=== PATIENT | male | born 1970 | race African-American/Black ===

== ENCOUNTER 2017-09-09 12:43 | Inpatient (IN) | payer OTHER ==
[~2017-09-09] VITALS: Ht 182.9 cm; Wt 130.0 kg
[~2017-09-09 12:43] MED LIST: ALBU8I INH; ASPI325T PO; COZA50TA PO; GABA600T OR; GLUCTAB OR; LANTUSP SQ; NOVOLOGP2 SQ; OSEL75 PO; PRIL40CA PO; PROM6.257 PO; ROSU40 PO
[2017-09-09 12:45] VITALS: BP 150/86; PULSE 98; RESP 20; TEMP 98.4; O2SAT 97
--- NOTE | 2017-09-09 13:12 | PD ---
HPI Chief Complaint: Injury Time Seen by Provider: 12:59 Travel History International Travel<30 days: No Contact w/Intl Traveler<30days: No Traveled to known affect area: No History of Present Illness HPI Patient is a 47-year-old male presenting to the emergency department to be admitted due to right foot osteomyelitis. Patient reports having the ulcer for approximately a month and a half on the lateral aspect of his right foot. He denies any pain at this time. Patient has been followed by Dr. Ольга Taylor, he was sent here by Dr. Sidney Boyer for direct admit however there are no beds available at this time the patient was brought into the emergency department. Patient's past medical history significant for hypertension, diabetes, diabetic neuropathy, hyperlipidemia. Patient is no other complaints at this time. PFSH Past Medical History Arthritis: No Asthma: Yes Autoimmune Disease: No Blood Disorders: No Anxiety: No Depression: No Cancer: No High Cholesterol: Yes Chemotherapy: No Chest Pain: Yes Congestive Heart Failure: No COPD: No Cerebrovascular Accident: No Diabetes: Yes Patient Takes Glucophage: Yes Diminished Hearing: No GERD: Yes Glaucoma: No Genitourinary: No Headaches: No Hepatitis: No Hiatal Hernia: No Hypertension: Yes Immune Disorder: No Implanted Vascular Access Dvce: No Kidney Stones: No Musculoskeletal: No Neurologic: Yes (neuropathy) Psychiatric: No Reproductive: No Migraines: Yes Myocardial Infarction: Yes (JUN 2010) Radiation Therapy: No Renal Failure: No Seizures: No Sickle Cell Disease: No Sleep Apnea: No Thyroid Disease: No Ulcer: No Tetanus Vaccination: < 5 Years Past Surgical History Abdominal Surgery: No AICD: No Appendectomy: No Arteriovenous Shunt: No Cardiac Surgery: Yes (STENT X 04 JUN 2010) Cholecystectomy: No Ear Surgery: No Endocrine Surgery: No Eye Surgery: No Genitourinary Surgery: No Gynecologic Surgery: No Insulin Pump: No Joint Replacement: No Oral Surgery: Yes (ROOT CANAL) Pacemaker: No Thoracic Surgery: No Other Surgery: Yes Social History Alcohol Use: No Tobacco Use: No Substance Use: No Allergies-Medications (Allergen,Severity, Reaction): Coded Allergies: prednisone (Unverified Allergy, Severe, SWELLING, 09/09/17) Reported Meds & Prescriptions Reported Meds & Active Scripts Active Reported Lovastatin 40 Mg Tab 40 Mg PO HS Omeprazole 20 Mg Tab 20 Mg PO DAILY Silvadene Topical (Silver Sulfadiazine) 1 % Cream 1 Applic TOPICAL DIRECTED Victoza Inj (Liraglutide Inj) 18 Mg/3 Ml Pen 1.8 Mg SQ DAILY Gabapentin 600 Mg Tab 600 Mg PO TID Novolog Flexpen Inj (Insulin Aspart) 300 Unit/3 Ml Pen 30 Units SQ TIDAC Tresiba Flextouch Pen Inj (Insulin Degludec Inj) 300 unit/3 ML Pen 30 Units SQ HS Metformin ER (Metformin HCl) 1,000 Mg July 1,000 Mg PO BID With evening meal Cozaar (Losartan Potassium) 50 Mg Tab 50 Mg PO DAILY Review of Systems Except as stated in HPI: all other systems reviewed are Neg Skin: Positive Other (ulceration, right foot) Physical Exam Narrative GENERAL: Well-developed, well-nourished, alert male. Resting comfortably in no acute distress. SKIN: Warm and dry. 2 and half centimeter by 3 cm ulceration to lateral aspect of right foot just proximal to the MTP joint, yellow-green discharge noted on dressing, foul odor noted. HEAD: Atraumatic. Normocephalic. EYES: Pupils equal and round. No scleral icterus. No injection or drainage. ENT: No nasal bleeding or discharge. Mucous membranes pink and moist. NECK: Trachea midline. No JVD. CARDIOVASCULAR: Regular rate and rhythm. 2+ dorsalis pedal pulses bilaterally, brisk less than 3 second capillary refill. RESPIRATORY: No accessory muscle use. Clear to auscultation. Breath sounds equal bilaterally. GASTROINTESTINAL: Abdomen soft, non-tender, nondistended. Hepatic and splenic margins not palpable. MUSCULOSKELETAL: Extremities without clubbing, cyanosis, or edema. No obvious deformities. NEUROLOGICAL: Awake and alert. No obvious cranial nerve deficits. Motor grossly within normal limits. Five out of 5 muscle strength in the arms and legs. Normal speech. PSYCHIATRIC: Appropriate mood and affect; insight and judgment normal. Data Data Last Documented VS Vital Signs Date Time Temp Pulse Resp B/P (MAP) Pulse Ox O2 Delivery O2 Flow Rate FiO2 09/09/17 12:45 98.4 98 20 150/86 (107) 97 Room Air Orders Orders Complete Blood Count With Diff (09/09/17 13:07) Basic Metabolic Panel (Bmp) (09/09/17 13:07) Magnesium (Mg) (09/09/17 13:07) Electrocardiogram (09/09/17 ) Iv Access Insert/Monitor (09/09/17 13:07) Diet Npo (09/09/17 Lunch) Activity Oob With Assistance (09/09/17 13:07) Consult Podiatry (09/09/17 ) Admit Order (Ed Use Only) (09/09/17 13:07) Notify Dr: Yann (09/09/17 13:07) MDM Medical Decision Making Medical Screen Exam Complete: Yes Emergency Medical Condition: Yes Interpretation(s) Vital Signs Date Time Temp Pulse Resp B/P (MAP) Pulse Ox O2 Delivery O2 Flow Rate FiO2 09/09/17 12:45 98.4 98 20 150/86 (107) 97 Room Air Differential Diagnosis Cellulitis versus abscess versus osteomyelitis versus diabetic ulcer versus other Narrative Course Patient is 47-year-old male sent to the emergency department to be admitted due to a diabetic foot ulcer, patient will be kept NPO. Patient was sent with orders from Dr. Boyer, these orders were placed in the computer. Patient was admitted to his service. Paged Dr. Boyer to notify him of patient's location. Patient's vital signs are stable, he is resting comfortably, at bedside. Notified Dr. Boyer the patient was in the emergency department. Diagnosis Primary Impression: Diabetic foot ulcer Qualified Codes: E11.621 - Type 2 diabetes mellitus with foot ulcer; L97.519 - Non-pressure chronic ulcer of other part of right foot with unspecified severity Additional Impressions: Type 2 diabetes mellitus Qualified Codes: E11.69 - Type 2 diabetes mellitus with other specified complication Diabetic neuropathy Qualified Codes: E11.49 - Type 2 diabetes mellitus with other diabetic neurological complication Hypertension Qualified Codes: I10 - Essential (primary) hypertension Admitting Information Admitting Physician Requests: Admit Condition: Stable PhiNancy huffmanRadha ARNP Sep 09, 2017 13:12
[2017-09-09] MEDS ORDERED: LEVO.05 PO (13:19)
[2017-09-09] MEDS ORDERED: COLA100C5 PO (13:19)
[2017-09-09] MEDS ORDERED: PROT40TA PO (13:19)
[2017-09-09] MEDS ORDERED: METF500T PO (13:19)
[2017-09-09] MEDS ORDERED: BENZ0.5T PO (13:19)
[2017-09-09] MEDS ORDERED: LITH450T PO (13:19)
[2017-09-09] MEDS ORDERED: LITH300C2 PO (13:19)
[2017-09-09] MEDS ORDERED: ASPI81TA23 PO (13:19)
[2017-09-09] MEDS ORDERED: LISI10TA3 PO (13:19)
[2017-09-09] MEDS ORDERED: SERO400T PO (13:19)
[2017-09-09] MEDS ORDERED: MAGNESIUM HYDROXIDE SUSP 30 ML CUP PO PRN (13:45)
[2017-09-09] MEDS ORDERED: ACETAMINOPHEN 325 MG TAB PO PRN (13:45)
[2017-09-09] MEDS ORDERED: ONDANSETRON HCL 4 MG/2 ML VIAL IVP PRN (13:45)
[2017-09-09] MEDS ORDERED: NALOXONE HCL 0.4 MG/ML AMP IV PUSH PRN (13:45)
[2017-09-09] MEDS ORDERED: TEMAZEPAM 15 MG CAP PO PRN (13:45)
[2017-09-09] MEDS ORDERED: GABA600T PO (13:55)
[2017-09-09] MEDS ORDERED: METF-382 PO (13:55)
[2017-09-09] MEDS ORDERED: INSU1INJ14 SQ (13:55)
[2017-09-09] MEDS ORDERED: NOVOINJ3 SQ (13:55)
[2017-09-09] MEDS ORDERED: ROSU1TAB10 PO (13:55)
[2017-09-09] MEDS ORDERED: COZA50TA PO (13:55)
[2017-09-09] MEDS ORDERED: LOVA40TA PO (14:00)
[2017-09-09] MEDS ORDERED: SILV1CRE20 TOPICAL (14:00)
[2017-09-09] MEDS ORDERED: OMEP20TA93 PO (14:00)
[2017-09-09] MEDS ORDERED: VICT18IN SQ (14:00)
[2017-09-09] MEDS ORDERED: ACETAMINOPHEN/HYDROcodone 325 MG/5 MG TAB PO PRN (14:00)
[2017-09-09 14:12] LABS: AUTOMATED NEUTROPHIL # 4.6 TH/MM3 (1.8-7.7); BASOPHIL % 0.5 % (0.0-2.0); EOSINOPHIL # 0.2 TH/MM3 (0-0.4); EOSINOPHIL % 2.9 % (0.0-4.0); HEMATOCRIT 35.9 % (39.0-51.0); HEMO FLAGS DIFF FINAL; LYMPH % 33.4 % (9.0-44.0); LYMPHOCYTE # 2.7 TH/MM3 (1.0-4.8); MEAN CELL VOLUME 85.7 FL (80.0-100.0); MEAN CORPUSCULAR HEMOGLOBIN 29.8 PG (27.0-34.0); MEAN CORPUSCULAR HGB CONC 34.8 % (32.0-36.0); MONO % 7.4 % (0.0-8.0); NEUT % 55.8 % (16.0-70.0); PLATELET COUNT 285 TH/MM3 (150-450); RED BLOOD COUNT 4.19 MIL/MM3 (4.50-5.90); RED CELL DISTRIBUTION WIDTH 13.3 % (11.6-17.2); WHITE BLOOD COUNT 8.2 TH/MM3 (4.0-11.0)
[2017-09-09] MEDS ORDERED: DEXTROSE 50% IN WATER 50 ML VIAL(D50) IV PUSH PRN (14:30)
[2017-09-09] MEDS ORDERED: GLUCAGON 1 MG/ML VIAL OTHER PRN (14:30)
[2017-09-09] MEDS ORDERED: Vancomycin Consult Pharmacy 1 EA OTHER SCH (14:30)
[2017-09-09 14:34] LABS: BICARBONATE 26.7 MEQ/L (21.0-32.0); MAGNESIUM 2.1 MG/DL (1.5-2.5)
--- NOTE | 2017-09-09 14:58 | RADRPT ---
EXAM DATE/TIME: 09/09/2017 14:42 [place] COMPARISON: CHEST SINGLE AP, December 06, 2015, 8:47. INDICATIONS : Cough. Patient states no chest complaints. MEDICAL HISTORY : Myocardial infarction. Patient states he is going to have right foot surgery. SURGICAL HISTORY : 2 heart stents in 2009. ENCOUNTER: Initial ACUITY: 1 day PAIN SCORE: 0/10 LOCATION: Bilateral chest FINDINGS: Portable AP view of the chest demonstrates a normal-sized cardiac silhouette. No effusion, consolidat ion, or pneumothorax is visualized. The bones and soft tissues demonstrate no acute abnormality. CONCLUSION: No acute cardiopulmonary abnormality is identified. Shahzad Schreiber MD on September 09, 2017 at 14:56 Board Certified Radiologist. This report was verified electronically.
--- NOTE | 2017-09-09 15:27 | HHI.HP ---
HPI Service [facility] Primary Care Physician Jewel Smith MD Admission Diagnosis RIGHT FOOT OSTEOMYELITIS Chief Complaint: Right foot non healing wound Travel History International Travel<30 Days: No Contact w/Intl Traveler <30 Da: No Traveled to Known Affected Are: No History of Present Illness Mr. Clancy is a pleasant 47 y/o AAM with diabetes mellitus, diabetic neuropathy, HTN, hyperlipidemia, and hx of CAD/CT in 2009. He presented to the ED to be admitted possible right foot osteomyelitis. Patient reports having a nonhealing ulcer on the lateral aspect of the right foot since late 07/2017. He was initially treated for a possible cellulitis with Bactrim x 10 days ( prescribed 07/30) at [facility]. He did have some improvement initially with the antibiotics. He was sent for an outpt evaluation LE venous US (08/12/17) which was negative for DVT. He was then sent for LE arterial duplex US on 08/21/17 which noted mild nonobstructive atherosclerotic plaque throughout both LE. Pt reportedly had an outpt MRI which per the pt noted concern for osteomyelitis. Patient was seen by Dr. Ольга Taylor and recommended admission as there was concern for possible osteomyelitis and for surgical intervention by podiatry. Review of Systems Constitutional: DENIES: Fever, Chills Eyes: DENIES: Vision loss Ears, nose, mouth, throat: DENIES: Hearing loss, Running Nose Respiratory: DENIES: Cough, Shortness of breath Cardiovascular: COMPLAINS OF: Lower Extremity Edema, DENIES: Chest pain, Palpitations Gastrointestinal: DENIES: Abdominal pain, Diarrhea, Nausea, Vomiting Genitourinary: DENIES: Hematuria, Dysuria Musculoskeletal: COMPLAINS OF: Joint Swelling, DENIES: Back pain Integumentary: COMPLAINS OF: Abnormal pigmentation, DENIES: Rash Neurologic: DENIES: Headache Psychiatric: DENIES: Confusion Past Family Social History Past Medical History CAD with hx of CT in 2009, Hgb A1C 11.3 on 08/12/17 Diabetes mellitus, type 2 Diabetic neuropathy Asthma Anxiety HTN Hyperlipidemia Obesity Fatty liver Vitamin D deficiency Chronic low back pain Past Surgical History PTCA with stent placement x 2 in 2009 Reported Medications Lovastatin 40 Mg Tab 40 Mg PO HS Omeprazole 20 Mg Tab 20 Mg PO DAILY Silvadene Topical (Silver Sulfadiazine) 1 % Cream 1 Applic TOPICAL DIRECTED Victoza Inj (Liraglutide Inj) 18 Mg/3 Ml Pen 1.8 Mg SQ DAILY Gabapentin 600 Mg Tab 600 Mg PO TID Novolog Flexpen Inj (Insulin Aspart) 300 Unit/3 Ml Pen 30 Units SQ TIDAC Tresiba Flextouch Pen Inj (Insulin Degludec Inj) 300 unit/3 ML Pen 30 Units SQ HS Metformin ER (Metformin HCl) 1,000 Mg July 1,000 Mg PO BID With evening meal Cozaar (Losartan Potassium) 50 Mg Tab 50 Mg PO DAILY Allergies: Coded Allergies: prednisone (Unverified Allergy, Severe, SWELLING, 09/09/17) Family History Father diagnosed with colon cancer at age 50 Mother at age 63 [address] CT/CHF Social History Denies any alcohol, tobacco or illicit drug use 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 SKIN: 2.5cm x 3 cm ulceration on lateral aspect of right foot just proximal to the MTP joint, yellow-green discharge noted on dressing, foul odor. HEENT: Atraumatic. Normocephalic. No temporal or scalp tenderness. No scleral icterus. Airway patent. NECK: Trachea midline, supple, nontender. CARDIO: Regular RESP: CTA bilaterally. No wheezes, rales, or rhonchi. ABD: +BS, soft, non-tender, nondistended. EXT: Extremities without clubbing or cyanosis. NEURO: Awake and alert. Motor and sensory grossly within normal limits. Normal speech. Laboratory Laboratory Tests Test 09/09/17 14:00 White Blood Count 8.2 Red Blood Count 4.19 Hemoglobin 12.5 Hematocrit 35.9 Mean Corpuscular Volume 85.7 Mean Corpuscular Hemoglobin 29.8 Mean Corpuscular Hemoglobin Concent 34.8 Red Cell Distribution Width 13.3 Platelet Count 285 Mean Platelet Volume 8.1 Neutrophils (%) (Auto) 55.8 Lymphocytes (%) (Auto) 33.4 Monocytes (%) (Auto) 7.4 Eosinophils (%) (Auto) 2.9 Basophils (%) (Auto) 0.5 Neutrophils # (Auto) 4.6 Lymphocytes # (Auto) 2.7 Monocytes # (Auto) 0.6 Eosinophils # (Auto) 0.2 Basophils # (Auto) 0.0 CBC Comment DIFF FINAL Differential Comment Blood Urea Nitrogen 19 Creatinine 1.35 Random Glucose 208 Calcium Level 8.9 Magnesium Level 2.1 Sodium Level 136 Potassium Level 4.0 Chloride Level 101 Carbon Dioxide Level 26.7 Anion Gap 8 Estimat Glomerular Filtration Rate 68 Result Diagram: 09/09/17 1400 09/09/17 1400 Septic Shock Reassessment Heart: Regular rate and rhythm Lungs: Clear Skin: Warm Caprini VTE Risk Assessment Caprini VTE Risk Assessment: Mod/High Risk (score >= 2) Caprini Risk Assessment Model Point Value = 1 Point Value = 2 Point Value = 3 Point Value = 5 Age 41-60 Minor surgery BMI > 25 kg/m2 Swollen legs Varicose veins or History of unexplained or recurrent spontaneous Oral contraceptives or hormone replacement Sepsis (< 1 month) Serious lung disease, including pneumonia (< 1 month) Abnormal pulmonary function Acute myocardial infarction Congestive heart failure (< 1 month) History of inflammatory bowel disease Medical patient at bed rest Age 61-74 Arthroscopic surgery Major open surgery (> 45 min) Laparoscopic surgery (> 45 min) Malignancy Confined to bed (> 72 hours) Immobilizing plaster cast Central venous access Age >= 75 History of VTE Family history of VTE Factor V Leiden Prothrombin [id number] Lupus anticoagulant Anticardiolipin antibodies Elevated serum homocysteine Heparin-induced thrombocytopenia Other congenital or acquired thrombophilia Stroke (< 1 month) Elective arthroplasty Hip, pelvis, or leg fracture Acute spinal cord injury (< 1 month) Prophylaxis Regimen Total Risk Factor Score Risk Level Prophylaxis Regimen 0-1 Low Early ambulation 2 Moderate Order ONE of the following: *Sequential Compression Device (SCD) *Heparin 5000 units SQ BID 3-4 Higher Order ONE of the following medications: *Heparin 5000 units SQ TID *Enoxaparin/Lovenox 40 mg SQ daily (WT < 150 kg, CrCl > 30 mL/min) *Enoxaparin/Lovenox 30 mg SQ daily (WT < 150 kg, CrCl > 10-29 mL/min) *Enoxaparin/Lovenox 30 mg SQ BID (WT < 150 kg, CrCl > 30 mL/min) AND/OR *Sequential Compression Device (SCD) 5 or more Highest Order ONE of the following medications: *Heparin 5000 units SQ TID (Preferred with Epidurals) *Enoxaparin/Lovenox 40 mg SQ daily (WT < 150 kg, CrCl > 30 mL/min) *Enoxaparin/Lovenox 30 mg SQ daily (WT < 150 kg, CrCl > 10-29 mL/min) *Enoxaparin/Lovenox 30 mg SQ BID (WT < 150 kg, CrCl > 30 mL/min) AND *Sequential Compression Device (SCD) Assessment and Plan Problem List: (1) Diabetic foot ulcer ICD Codes: E11.621 - Type 2 diabetes mellitus with foot ulcer; L97.509 - Non- pressure chronic ulcer of other part of unspecified foot with unspecified severity Status: Acute Plan: - Pt is a 47 y/o male with diabetes mellitus, diabetic neuropathy, HTN, hyperlipidemia, and hx of CAD/CT in 2009. - He presented to the ED to be admitted for possible right foot osteomyelitis. - Patient reports having a nonhealing ulcer on the lateral aspect of the right foot since late 07/2017. He was initially treated for cellulitis with Bactrim x 10 days (prescribed 07/30/17) at [facility]. He did have some improvement initially with the antibiotics but this progressively worsened in the last few weeks. He was sent for an outpt evaluation LE venous US (08/12/17) which was negative for DVT. He was then sent for LE arterial duplex US on 08/21/17 which noted mild nonobstructive atherosclerotic plaque throughout both LE. Pt reportedly had an outpt MRI which noted concern for osteomyelitis but I do not have the results of this study at the time of admission. Patient was seen by Dr. Ольга Taylor and recommended admission as there was concern for possible osteomyelitis and for surgical intervention by podiatry. - Podiatry is consulted, possible surgical intervention tomorrow - Start IV Vancomycin, pharmacy dosing - Pain control PRN - Supportive care - DVT prophylaxis to be started post-operatively (2) Type 2 diabetes mellitus ICD Codes: E11.9 - Type 2 diabetes mellitus without complications Status: Chronic Plan: - Hgb A1C 11.3% on 08/12/17 - Cont. OHA - NovoLog SSI - Levemir can be added once pt is eating - Accu checks (3) Hypertension ICD Codes: I10 - Essential (primary) hypertension Status: Acute Plan: - Home meds continued - Monitor (4) Diabetic neuropathy ICD Codes: E11.40 - Type 2 diabetes mellitus with diabetic neuropathy, unspecified Status: Acute Plan: - Gabapentin home dose continued Assessment and Plan Patient examined. Assessment and plan formulated with Mary Carmen Casas PA-C. I agree with the above. Physician Certification 2 Midnight Certification Type: Admission for Inpatient Services Order for Inpatient Services The services are ordered in accordance with Medicare regulations or non- Medicare payer requirements, as applicable. In the case of services not specified as inpatient-only, they are appropriately provided as inpatient services in accordance with the 2-midnight benchmark. Estimated LOS (days): 3 3 days is the estimated time the patient will need to remain in the hospital, assuming treatment plan goals are met and no additional complications. Post-Hospital Plan: Not yet determined Problem Qualifiers (1) Diabetic foot ulcer: Qualified Codes: E11.621 - Type 2 diabetes mellitus with foot ulcer; L97.519 - Non-pressure chronic ulcer of other part of right foot with unspecified severity (2) Type 2 diabetes mellitus: Qualified Codes: E11.69 - Type 2 diabetes mellitus with other specified complication (3) Hypertension: Qualified Codes: I10 - Essential (primary) hypertension (4) Diabetic neuropathy: Qualified Codes: E11.49 - Type 2 diabetes mellitus with other diabetic neurological complication Mary Carmen Casas Sep 09, 2017 15:27 Sidney Boyer DO Sep 15, 2017 21:41
--- NOTE | 2017-09-09 15:28 | PD ---
Physical Exam Date Seen by Provider: Sep 09, 2017 Narrative This patient is here to be admitted for osteomyelitis in his foot. Data Data Last Documented VS Vital Signs Date Time Temp Pulse Resp B/P (MAP) Pulse Ox O2 Delivery O2 Flow Rate FiO2 09/09/17 12:45 98.4 98 20 150/86 (107) 97 Room Air Orders Orders Complete Blood Count With Diff (09/09/17 13:07) Basic Metabolic Panel (Bmp) (09/09/17 13:07) Magnesium (Mg) (09/09/17 13:07) Electrocardiogram (09/09/17 ) Iv Access Insert/Monitor (09/09/17 13:07) Diet Npo (09/09/17 Lunch) Activity Oob With Assistance (09/09/17 13:07) Consult Podiatry (09/09/17 ) Admit Order (Ed Use Only) (09/09/17 13:07) Notify Dr: Other (09/09/17 13:07) [facility] Supervised Visit with MINE: Yes Narrative Course I, Dr. Gonzalez, have reviewed the advance practice practitioner's documentation and am in agreement, met with the patient face to face, made the diagnosis, and the medical decision making was done by me. *My assessment and Findings: Patient is awake and alert and resting comfortably on the stretcher. His foot is dressed. Please see Nancy Borden NP's note for results of laboratory and radiographic evaluation, ED course, final diagnosis and disposition Diagnosis Primary Impression: Diabetic foot ulcer Qualified Codes: E11.621 - Type 2 diabetes mellitus with foot ulcer; L97.519 - Non-pressure chronic ulcer of other part of right foot with unspecified severity Additional Impressions: Diabetic neuropathy Qualified Codes: E11.49 - Type 2 diabetes mellitus with other diabetic neurological complication Type 2 diabetes mellitus Qualified Codes: E11.69 - Type 2 diabetes mellitus with other specified complication Hypertension Qualified Codes: I10 - Essential (primary) hypertension Condition: Stable Esther Gonzalez MD Sep 09, 2017 15:28
[2017-09-09] MEDS: INSULIN ASPART SUPPLEMENTAL SCALE SQ SCH ×2 (16:54→21:00)
[2017-09-09] MEDS: VANCOMYCIN INJ 1,500 MG in SODIUM CHLORID 0.9% 500 ML INJ 500 ML IV SCH (17:16)
[2017-09-09] MEDS: GABAPENTIN 300 MG CAP PO SCH (17:16)
[2017-09-09] MEDS ORDERED: VANCOMYCIN INJ 1,000 MG in SODIUM CHLOR 0.9% 250 ML INJ 250 ML IV SCH (18:00)
[2017-09-09 18:03] VITALS: BP 142/87
--- NOTE | 2017-09-09 18:16 | PD.CONS ---
History of Present Illness Service Podiatry Consult Requested By Rosalind Reason for Consult R foot osteomyelitis Primary Care Physician Jewel Smith MD Diagnoses: History of Present Illness Patient is 47 y/o diabetic male with neuropathy. He has over 1 month history of wound R lateral foot that has progressively worsened. He has outpatient MRI showing concern for osteomyelitis to distal 5th metatarsal head area and base of 5th proximal phalanx. Patient was seen by Dr. Ольга Taylor and sent in to be evaluated for surgery, bone biopsy, and PICC. Past Family Social History Allergies: Coded Allergies: prednisone (Unverified Allergy, Severe, SWELLING, 09/09/17) Past Medical History CAD with hx of [place] in 2009, Hgb A1C 11.3 on 08/12/17 Diabetes mellitus, type 2 Diabetic neuropathy Asthma Anxiety HTN Hyperlipidemia Obesity Fatty liver Vitamin D deficiency Chronic low back pain Past Surgical History PTCA with stent placement x 2 in 2009 Reported Medications Lovastatin 40 Mg Tab 40 Mg PO HS Omeprazole 20 Mg Tab 20 Mg PO DAILY Silvadene Topical (Silver Sulfadiazine) 1 % Cream 1 Applic TOPICAL DIRECTED Victoza Inj (Liraglutide Inj) 18 Mg/3 Ml Pen 1.8 Mg SQ DAILY Gabapentin 600 Mg Tab 600 Mg PO TID Novolog Flexpen Inj (Insulin Aspart) 300 Unit/3 Ml Pen 30 Units SQ TIDAC Tresiba Flextouch Pen Inj (Insulin Degludec Inj) 300 unit/3 ML Pen 30 Units SQ HS Metformin ER (Metformin HCl) 1,000 Mg July 1,000 Mg PO BID With evening meal Cozaar (Losartan Potassium) 50 Mg Tab 50 Mg PO DAILY Active Ordered Medications Current Medications Medications (Trade) Dose Ordered Sig/Mahamed Route Start Time Stop Time Status Last Admin (NS Flush) 2 ml UNSCH PRN IV FLUSH 09/09/17 13:45 (NS Flush) 2 ml BID IV FLUSH 09/09/17 21:00 (Tylenol) 650 mg Q4H PRN PO 09/09/17 13:45 (Zofran Inj) 4 mg Q6H PRN IVP 09/09/17 13:45 (Restoril) 15 mg HS PRN PO 09/09/17 13:45 (Narcan Inj) 0.4 mg UNSCH PRN IV PUSH 09/09/17 13:45 (Milk Of Magnesia Liq) 30 ml Q12H PRN PO 09/09/17 13:45 (NovoLOG SUPPLEMENTAL SCALE) 1 ACHS SLIDING SCALE SQ 09/09/17 17:00 (Hobart 5-325 Mg) 1 tab Q6H PRN PO 09/09/17 14:00 (Dilaudid Pf Inj) 0.5 mg Q6H PRN IV PUSH 09/09/17 14:00 Pharmacy Profile Note ml @ 0 mls/hr UNSCH OTHER 09/09/17 14:30 (D50w (Vial) Inj) 25 ml UNSCH PRN IV PUSH 09/09/17 14:30 (Glucagon Inj) 1 mg UNSCH PRN OTHER 09/09/17 14:30 Vancomycin HCl 1500 mg/Sodium Chloride 515 ml @ 250 mls/hr Q12H IV 09/09/17 18:00 09/09/17 17:16 (Neurontin) 600 mg TID PO 09/09/17 18:00 09/09/17 17:16 (Cozaar) 50 mg DAILY PO 09/10/17 09:00 (Pravachol) 40 mg HS PO 09/09/17 21:00 Miscellaneous Information SPECIFIC LAB TO BE DRAWN:VANCO TROUGH DATE TO BE DREnedelia.. 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 2cm x 1.7cm. No active purulent drainage noted. Mild serous drainage. Mild localized edema. Minimal erythema. Sensation absent. Pulses palpable. Skin temperature warm. Cap refill to digits. Laboratory Laboratory Tests Test 09/09/17 14:00 White Blood Count 8.2 Red Blood Count 4.19 Hemoglobin 12.5 Hematocrit 35.9 Mean Corpuscular Volume 85.7 Mean Corpuscular Hemoglobin 29.8 Mean Corpuscular Hemoglobin Concent 34.8 Red Cell Distribution Width 13.3 Platelet Count 285 Mean Platelet Volume 8.1 Neutrophils (%) (Auto) 55.8 Lymphocytes (%) (Auto) 33.4 Monocytes (%) (Auto) 7.4 Eosinophils (%) (Auto) 2.9 Basophils (%) (Auto) 0.5 Neutrophils # (Auto) 4.6 Lymphocytes # (Auto) 2.7 Monocytes # (Auto) 0.6 Eosinophils # (Auto) 0.2 Basophils # (Auto) 0.0 CBC Comment DIFF FINAL Differential Comment Blood Urea Nitrogen 19 Creatinine 1.35 Random Glucose 208 Calcium Level 8.9 Magnesium Level 2.1 Sodium Level 136 Potassium Level 4.0 Chloride Level 101 Carbon Dioxide Level 26.7 Anion Gap 8 Estimat Glomerular Filtration Rate 68 Result Diagram: 09/09/17 1400 09/09/17 1400 Assessment and Plan Assessment and Plan Osteomyelitis Right distal 5th metatarsal and proximal aspect proximal phalanx 5th toe Plan to OR tomorrow 430 pm for partial 5th ray resection to remove distal 5th met head area and proximal aspect of 5th toe proximal phalanx. Plan to biopsy residual bone at both ends, excise wound, culture, and primarily close, unless abscess encountered. Plan for PICC for 2-6 weeks, pending bone biopsy/culture results. Henrietta Singh DPM Sep 09, 2017 18:16
[2017-09-09 18:33] VITALS: BP 161/98; PULSE 85; RESP 18; TEMP 98.3; O2SAT 94
[2017-09-09] MEDS ORDERED: SODIUM CHLORIDE FLUSH PRN IV FLUSH (19:30)
[2017-09-09 20:00] VITALS: BP 168/102; PULSE 85; RESP 20; TEMP 98; O2SAT 98
[2017-09-09] MEDS: SODIUM CHLORIDE FLUSH BID IV FLUSH SCH (21:00)
[2017-09-09] MEDS: metFORMIN HCL 500 MG TAB PO SCH (22:12)
[2017-09-09] MEDS: PRAVASTATIN SOD 40 MG TAB PO SCH (22:13)
[2017-09-09] MEDS: SODIUM CHLORIDE 0.9% FLUSH 10 ML FLUSH IV FLUSH SCH (22:14)
[2017-09-10] VITALS (7 sets, daily range): BP systolic 118–158; BP diastolic 67–87; PULSE 85–90; RESP 16–20; TEMP 97.3–98.8; O2SAT 92–98
[2017-09-10] MEDS: VANCOMYCIN INJ 1,500 MG in SODIUM CHLORID 0.9% 500 ML INJ 500 ML IV SCH ×2 (06:05→17:26)
[2017-09-10] MEDS: SODIUM CHLORIDE 0.9% FLUSH 10 ML FLUSH IV FLUSH PRN (06:05)
[2017-09-10] MEDS: INSULIN ASPART SUPPLEMENTAL SCALE SQ SCH ×4 (08:00→21:00)
[2017-09-10 08:26] LABS: AUTOMATED NEUTROPHIL # 4.6 TH/MM3 (1.8-7.7); BASOPHIL % 0.5 % (0.0-2.0); EOSINOPHIL # 0.3 TH/MM3 (0-0.4); EOSINOPHIL % 3.5 % (0.0-4.0); HEMATOCRIT 36.3 % (39.0-51.0); HEMO FLAGS DIFF FINAL; LYMPH % 34.7 % (9.0-44.0); LYMPHOCYTE # 2.9 TH/MM3 (1.0-4.8); MEAN CELL VOLUME 86.4 FL (80.0-100.0); MEAN CORPUSCULAR HEMOGLOBIN 29.6 PG (27.0-34.0); MEAN CORPUSCULAR HGB CONC 34.3 % (32.0-36.0); MONO % 6.4 % (0.0-8.0); NEUT % 54.9 % (16.0-70.0); PLATELET COUNT 292 TH/MM3 (150-450); RED CELL DISTRIBUTION WIDTH 13.5 % (11.6-17.2); WHITE BLOOD COUNT 8.4 TH/MM3 (4.0-11.0)
[2017-09-10] MEDS: GABAPENTIN 300 MG CAP PO SCH ×3 (08:44→17:28)
[2017-09-10] MEDS: LOSARTAN 50 MG TAB PO SCH (08:44)
[2017-09-10] MEDS: SODIUM CHLORIDE 0.9% FLUSH 10 ML FLUSH IV FLUSH SCH ×2 (08:49→22:48)
[2017-09-10] MEDS: SODIUM CHLORIDE FLUSH BID IV FLUSH SCH ×2 (08:50→21:00)
[2017-09-10] MEDS: metFORMIN HCL 500 MG TAB PO SCH ×2 (09:00→21:00)
--- NOTE | 2017-09-10 10:01 | EKG ---
Date Performed: 09/09/2017 Time Performed: 13:26:49 PTAGE: 47 years EKG: Sinus rhythm NONSPECIFIC T-WAVE ABNORMALITY BORDERLINE ECG PREVIOUS TRACING : 12/06/2015 08.30 DOCTOR: Nile Hinton Interpretating Date/Time 09/10/2017 09:59:12
[2017-09-10 10:21] LABS: BICARBONATE 27.7 MEQ/L (21.0-32.0)
[2017-09-10] MEDS ORDERED: PHENYLEPH/NS 1000 MCG/10 ML SYR IV ONE (12:00)
[2017-09-10] MEDS ORDERED: MIDAZOLAM HCL 2 MG/2 ML VIAL IV ONE (12:00)
[2017-09-10] MEDS ORDERED: ONDANSETRON HCL 4 MG/2 ML VIAL IV PUSH ONE (12:00)
[2017-09-10] MEDS ORDERED: LACTATED RINGER'S 1000 ML INJ 1,000 ML IV ONE (12:00)
[2017-09-10] MEDS ORDERED: PROPOFOL 200 MG/20 ML AMP IV ONE (12:00)
[2017-09-10] MEDS ORDERED: SUCCINYLCHOLINE CHLORIDE 100 MG/5 ML SYRINGE IV PUSH ONE (12:00)
[2017-09-10] MEDS ORDERED: LIDOCAINE HCL 1% PF 5 ML AMPULE OTHER ONE (12:00)
--- NOTE | 2017-09-10 13:29 | HHI.PR ---
Subjective Remarks Plan for OR today with podiatry Patient offers no complaints at this time Objective Vitals Vital Signs Date Time Temp Pulse Resp B/P (MAP) Pulse Ox O2 Delivery O2 Flow Rate FiO2 09/10/17 12:00 98.4 85 20 147/80 (102) 97 09/10/17 08:00 98.6 87 20 149/87 (107) 97 09/10/17 04:00 97.3 88 20 158/81 (106) 98 09/10/17 00:00 97.9 90 20 118/67 (84) 97 09/09/17 20:00 98.0 85 20 168/102 (124) 98 09/09/17 18:33 98.3 85 18 161/98 (119) 94 09/09/17 18:03 89 20 142/87 (105) 99 Result Diagram: 09/10/17 0735 09/10/17 0735 Other Results Laboratory Tests Test 09/09/17 14:00 09/10/17 07:35 White Blood Count 8.2 TH/MM3 8.4 TH/MM3 Red Blood Count 4.19 MIL/MM3 4.20 MIL/MM3 Hemoglobin 12.5 GM/DL 12.4 GM/DL Hematocrit 35.9 % 36.3 % Mean Corpuscular Volume 85.7 FL 86.4 FL Mean Corpuscular Hemoglobin 29.8 PG 29.6 PG Mean Corpuscular Hemoglobin Concent 34.8 % 34.3 % Red Cell Distribution Width 13.3 % 13.5 % Platelet Count 285 TH/MM3 292 TH/MM3 Mean Platelet Volume 8.1 FL 8.3 FL Neutrophils (%) (Auto) 55.8 % 54.9 % Lymphocytes (%) (Auto) 33.4 % 34.7 % Monocytes (%) (Auto) 7.4 % 6.4 % Eosinophils (%) (Auto) 2.9 % 3.5 % Basophils (%) (Auto) 0.5 % 0.5 % Neutrophils # (Auto) 4.6 TH/MM3 4.6 TH/MM3 Lymphocytes # (Auto) 2.7 TH/MM3 2.9 TH/MM3 Monocytes # (Auto) 0.6 TH/MM3 0.5 TH/MM3 Eosinophils # (Auto) 0.2 TH/MM3 0.3 TH/MM3 Basophils # (Auto) 0.0 TH/MM3 0.0 TH/MM3 CBC Comment DIFF FINAL DIFF FINAL Differential Comment Blood Urea Nitrogen 19 MG/DL 17 MG/DL Creatinine 1.35 MG/DL 1.29 MG/DL Random Glucose 208 MG/DL 172 MG/DL Calcium Level 8.9 MG/DL 8.5 MG/DL Magnesium Level 2.1 MG/DL Sodium Level 136 MEQ/L 138 MEQ/L Potassium Level 4.0 MEQ/L 4.0 MEQ/L Chloride Level 101 MEQ/L 105 MEQ/L Carbon Dioxide Level 26.7 MEQ/L 27.7 MEQ/L Anion Gap 8 MEQ/L 5 MEQ/L Estimat Glomerular Filtration Rate 68 ML/MIN 72 ML/MIN Imaging Last Impressions Chest X-Ray 09/09/17 1340 Signed Impressions: Service Date/Time: Saturday, September 09, 2017 14:42 - CONCLUSION: No acute cardiopulmonary abnormality is identified. Shahzad Schreiber MD Objective Remarks GENERAL: This is a well-nourished, well-developed patient, in no apparent distress. SKIN: dressing intact CARDIO: Regular RESP: CTA bilaterally. ABD: +BS, soft, non-tender, nondistended. NEURO: Awake and alert. Motor and sensory grossly within normal limits. Normal speech. A/P Problem List: (1) Diabetic foot ulcer ICD Codes: E11.621 - Type 2 diabetes mellitus with foot ulcer; L97.509 - Non- pressure chronic ulcer of other part of unspecified foot with unspecified severity Status: Acute Plan: - Pt is a 47 y/o male with diabetes mellitus, diabetic neuropathy, HTN, hyperlipidemia, and hx of CAD/[place] in 2009. - He presented to the ED to be admitted for possible right foot osteomyelitis. - Patient reports having a nonhealing ulcer on the lateral aspect of the right foot since late 07/2017. He was initially treated for cellulitis with Bactrim x 10 days (prescribed 07/30/17) at [facility]. He did have some improvement initially with the antibiotics but this progressively worsened in the last few weeks. He was sent for an outpt evaluation LE venous US (08/12/17) which was negative for DVT. He was then sent for LE arterial duplex US on 08/21/17 which noted mild nonobstructive atherosclerotic plaque throughout both LE. Pt reportedly had an outpt MRI which noted concern for osteomyelitis but I do not have the results of this study at the time of admission. Patient was seen by Dr. Ольга Taylor and recommended admission as there was concern for possible osteomyelitis and for surgical intervention by podiatry. - Podiatry is consulted, possible surgical intervention later today - per podiatry plan for partial 5th ray resection to remove distal 5th met head area and proximal aspect of 5th toe proximal phalanx. Plan to biopsy residual bone at both ends, excise wound, culture, and primarily close, unless abscess encountered. Plan for PICC for 2-6 weeks, pending bone biopsy/culture results. - will order PICC line placement in preparation for DC - continue IV Vancomycin, pharmacy dosing - Pain control PRN - Supportive care - repeat CBC and BMP in AM - DVT prophylaxis to be started post-operatively (2) Type 2 diabetes mellitus ICD Codes: E11.9 - Type 2 diabetes mellitus without complications Status: Chronic Plan: - Hgb A1C 11.3% on 08/12/17 - Cont. OHA - NovoLog SSI - Levemir can be added once pt is eating - Accu checks (3) Hypertension ICD Codes: I10 - Essential (primary) hypertension Status: Acute Plan: - Home meds continued - Monitor (4) Diabetic neuropathy ICD Codes: E11.40 - Type 2 diabetes mellitus with diabetic neuropathy, unspecified Status: Acute Plan: - Gabapentin home dose continued Assessment and Plan Patient examined. Assessment and plan formulated with Delma Dumont PA-C. I agree with the above. Problem Qualifiers (1) Diabetic foot ulcer: Qualified Codes: E11.621 - Type 2 diabetes mellitus with foot ulcer; L97.519 - Non-pressure chronic ulcer of other part of right foot with unspecified severity (2) Type 2 diabetes mellitus: Qualified Codes: E11.69 - Type 2 diabetes mellitus with other specified complication (3) Hypertension: Qualified Codes: I10 - Essential (primary) hypertension (4) Diabetic neuropathy: Qualified Codes: E11.49 - Type 2 diabetes mellitus with other diabetic neurological complication Delma Dumont Sep 10, 2017 13:29 Sidney Boyer DO Sep 15, 2017 21:40
[2017-09-10] MEDS ORDERED: LIDOCAINE HCL 2% 50 ML VIAL ONE (19:23)
[2017-09-10] MEDS ORDERED: BUPIVACAINE HCL PF 0.5% 30 ML VIAL ONE (19:25)
--- NOTE | 2017-09-10 19:54 | HHI.PR ---
Immediate Post Op Note Procedure Date: Sep 10, 2017 Pre Op Diagnosis: Osteomyelitis Right 5th metatarsal head and base of 5th proximal phalanx. Post Op Diagnosis: Same Surgeon: Henrietta Singh DPM Ms [employer] Developer(s): Staff Procedure: Right partial 5th ray amputation with bone biopsies and wound excision Findings: Consistent with diagnosis. Chronic wound noted to lateral aspect R foot. Outpatient MRI (+) findings for osteomyelitis. No willie purulence noted. Incision made to encompass wound to lateral 5th metatarsal head and 5th metatarsal resected at shaft/neck area to remove distal 2cm of bone and base of 5th proximal phalanx resected. All sent as specimen. Culture taken of 5th MTP joint area to guide antibiotic choice. Culture taken of residual wound after bone/wound specimen removed from foot. Irrigation with NS, followed by bone taken from residual 5th metatarsal and 5th proximal phalanx for bone biopsy. Closure primarily with 2-0 nylon, followed by xeroform, 4x4, cast padding, jose. NWB R foot in surgical shoe. Additional Information: n/a Complications: none Specimen(s) removed: 1. wound and bone 5th metatarsal head and base of 5th proximal phalanx right foot to pathology 2. bone residual 5th metatarsal to pathology as bone biopsy 3. bone residual 5th proximal phalanx to pathology as bone biopsy 4. culture R foot post-amputation 5. culture R foot 5th MTP joint Estimated blood loss: Minimal Anesthesia: General, Local (5mL 0.5% marcaine plain, 5mL 2% lidocaine plain) Drains: None IVF Tourniquet time (min at mmHg) R ankle @225mmHg x 26 minutes Patient to: PACU Patient Condition: Good Date/Time of Procedure: SEE SURGICAL CARE RECORD Henrietta Singh DPM Sep 10, 2017 19:54
[2017-09-10] MEDS: PRAVASTATIN SOD 40 MG TAB PO SCH (21:00)
[2017-09-10] MEDS ORDERED: DO NOT ADM ANY ANTICOAGULANT DRUGS PRN (21:02)
--- NOTE | 2017-09-10 21:44 | RADRPT ---
EXAM DATE/TIME: 09/10/2017 21:20 [place] COMPARISON: No previous studies available for comparison. INDICATIONS : Post op right foot. MEDICAL HISTORY : None. SURGICAL HISTORY : None. ENCOUNTER: Initial ACUITY: 1 day PAIN SCORE: Non-responsive. LOCATION: Right foot. FINDINGS: 3 views of the right foot show post surgical excision of the distal metatarsal of the fifth toe as we ll as the base of the proximal phalanx of the fifth toe. Air is seen within the intervening soft tiss ues. Soft tissue swelling is noted. The remaining bony structures are unremarkable. Degenerative changes. Spurring of the calcaneus. CONCLUSION: Postsurgical changes involving the fifth toe as detailed above. Ryan Blanchard Jr., MD on September 10, 2017 at 21:42 Board Certified Radiologist. This report was verified electronically.
[2017-09-10] MEDS: HYDROmorphone HCL PF 0.5 MG/0.5 ML SYRINGE IV PUSH PRN (22:41)
[2017-09-11 04:33] VITALS: BP 136/81; PULSE 88; RESP 16; TEMP 98.5; O2SAT 96
[2017-09-11] MEDS: HYDROmorphone HCL PF 0.5 MG/0.5 ML SYRINGE IV PUSH PRN ×4 (04:47→23:44)
[2017-09-11] MEDS: SODIUM CHLORIDE 0.9% FLUSH 10 ML FLUSH IV FLUSH PRN (04:48)
[2017-09-11] MEDS: VANCOMYCIN INJ 1,500 MG in SODIUM CHLORID 0.9% 500 ML INJ 500 ML IV SCH (05:35)
[2017-09-11] MEDS ORDERED: PHARMACY ORDERED LAB ONE (05:45)
[2017-09-11] MEDS: GABAPENTIN 300 MG CAP PO SCH ×3 (07:41→17:34)
[2017-09-11] MEDS: metFORMIN HCL 500 MG TAB PO SCH ×2 (07:41→20:46)
[2017-09-11] MEDS: LOSARTAN 50 MG TAB PO SCH (07:42)
[2017-09-11] MEDS: SODIUM CHLORIDE FLUSH BID IV FLUSH SCH ×2 (07:42→20:47)
[2017-09-11] MEDS: SODIUM CHLORIDE 0.9% FLUSH 10 ML FLUSH IV FLUSH SCH ×2 (07:42→20:47)
[2017-09-11 08:00] VITALS: BP 150/81; PULSE 88; RESP 18; TEMP 98.3; O2SAT 97
[2017-09-11] MEDS: INSULIN ASPART SUPPLEMENTAL SCALE SQ SCH ×4 (08:00→20:48)
[2017-09-11 08:28] LABS: AUTOMATED NEUTROPHIL # 6.2 TH/MM3 (1.8-7.7); BASOPHIL % 0.3 % (0.0-2.0); EOSINOPHIL # 0.2 TH/MM3 (0-0.4); EOSINOPHIL % 1.6 % (0.0-4.0); HEMATOCRIT 34.6 % (39.0-51.0); HEMO FLAGS DIFF FINAL; LYMPH % 27.2 % (9.0-44.0); LYMPHOCYTE # 2.8 TH/MM3 (1.0-4.8); MEAN CELL VOLUME 86.4 FL (80.0-100.0); MEAN CORPUSCULAR HEMOGLOBIN 29.6 PG (27.0-34.0); MEAN CORPUSCULAR HGB CONC 34.3 % (32.0-36.0); MONO % 9.1 % (0.0-8.0); NEUT % 61.8 % (16.0-70.0); PLATELET COUNT 266 TH/MM3 (150-450); RED BLOOD COUNT 4.01 MIL/MM3 (4.50-5.90); RED CELL DISTRIBUTION WIDTH 13.8 % (11.6-17.2); WHITE BLOOD COUNT 10.1 TH/MM3 (4.0-11.0)
[2017-09-11 08:46] LABS: POTASSIUM 3.9 MEQ/L (3.5-5.1)
[2017-09-11 11:30] VITALS: BP 126/73; PULSE 92; RESP 16; TEMP 98.1; O2SAT 94
--- NOTE | 2017-09-11 13:55 | HHI.PR ---
Subjective Remarks Patient is S/P Right partial 5th ray amputation with bone biopsies and wound excision 09/10/[address] Singh Patient reports feeling well offer no specific complaints at this time Objective Vitals Vital Signs Date Time Temp Pulse Resp B/P (MAP) Pulse Ox O2 Delivery O2 Flow Rate FiO2 09/11/17 11:30 98.1 92 16 126/73 (90) 94 09/11/17 08:45 Room Air 09/11/17 08:00 98.3 88 18 150/81 (104) 97 09/11/17 04:33 98.5 88 16 136/81 (99) 96 09/10/17 23:00 98.7 85 16 143/73 (96) 92 09/10/17 22:03 98.8 87 16 145/74 (97) 93 09/10/17 21:45 87 15 167/81 (109) 96 Room Air 09/10/17 21:30 90 13 169/87 (114) 94 Room Air 09/10/17 21:15 91 12 161/82 (108) 99 Room Air 09/10/17 21:02 98.6 93 15 165/85 (111) 100 Nasal Cannula 3 09/10/17 16:00 98.4 85 18 135/82 (99) 97 Result Diagram: 09/11/17 0700 09/11/17 0700 Other Results Laboratory Tests Test 09/09/17 14:00 09/10/17 07:35 09/11/17 05:15 09/11/17 07:00 White Blood Count 8.2 TH/MM3 8.4 TH/MM3 10.1 TH/MM3 Red Blood Count 4.19 MIL/MM3 4.20 MIL/MM3 4.01 MIL/MM3 Hemoglobin 12.5 GM/DL 12.4 GM/DL 11.9 GM/DL Hematocrit 35.9 % 36.3 % 34.6 % Mean Corpuscular Volume 85.7 FL 86.4 FL 86.4 FL Mean Corpuscular Hemoglobin 29.8 PG 29.6 PG 29.6 PG Mean Corpuscular Hemoglobin Concent 34.8 % 34.3 % 34.3 % Red Cell Distribution Width 13.3 % 13.5 % 13.8 % Platelet Count 285 TH/MM3 292 TH/MM3 266 TH/MM3 Mean Platelet Volume 8.1 FL 8.3 FL 8.3 FL Neutrophils (%) (Auto) 55.8 % 54.9 % 61.8 % Lymphocytes (%) (Auto) 33.4 % 34.7 % 27.2 % Monocytes (%) (Auto) 7.4 % 6.4 % 9.1 % Eosinophils (%) (Auto) 2.9 % 3.5 % 1.6 % Basophils (%) (Auto) 0.5 % 0.5 % 0.3 % Neutrophils # (Auto) 4.6 TH/MM3 4.6 TH/MM3 6.2 TH/MM3 Lymphocytes # (Auto) 2.7 TH/MM3 2.9 TH/MM3 2.8 TH/MM3 Monocytes # (Auto) 0.6 TH/MM3 0.5 TH/MM3 0.9 TH/MM3 Eosinophils # (Auto) 0.2 TH/MM3 0.3 TH/MM3 0.2 TH/MM3 Basophils # (Auto) 0.0 TH/MM3 0.0 TH/MM3 0.0 TH/MM3 CBC Comment DIFF FINAL DIFF FINAL DIFF FINAL Differential Comment Blood Urea Nitrogen 19 MG/DL 17 MG/DL 17 MG/DL Creatinine 1.35 MG/DL 1.29 MG/DL 1.53 MG/DL Random Glucose 208 MG/DL 172 MG/DL 199 MG/DL Calcium Level 8.9 MG/DL 8.5 MG/DL 8.6 MG/DL Magnesium Level 2.1 MG/DL Sodium Level 136 MEQ/L 138 MEQ/L 139 MEQ/L Potassium Level 4.0 MEQ/L 4.0 MEQ/L 3.9 MEQ/L Chloride Level 101 MEQ/L 105 MEQ/L 105 MEQ/L Carbon Dioxide Level 26.7 MEQ/L 27.7 MEQ/L 25.0 MEQ/L Anion Gap 8 MEQ/L 5 MEQ/L 9 MEQ/L Estimat Glomerular Filtration Rate 68 ML/MIN 72 ML/MIN 59 ML/MIN Vancomycin Level Trough 13.0 MCG/ML Imaging Last Impressions Chest X-Ray 09/09/17 1340 Signed Impressions: Service Date/Time: Saturday, September 09, 2017 14:42 - CONCLUSION: No acute cardiopulmonary abnormality is identified. Shahzad Schreiber MD Objective Remarks GENERAL: This is a well-nourished, well-developed patient, in no apparent distress. SKIN: post operative dressing dry and intact CARDIO: Regular RESP: CTA bilaterally. ABD: +BS, soft, non-tender, nondistended. NEURO: Awake and alert. Motor and sensory grossly within normal limits. Normal speech. A/P Problem List: (1) Diabetic foot ulcer ICD Codes: E11.621 - Type 2 diabetes mellitus with foot ulcer; L97.509 - Non- pressure chronic ulcer of other part of unspecified foot with unspecified severity Status: Acute Plan: - Pt is a 47 y/o male with diabetes mellitus, diabetic neuropathy, HTN, hyperlipidemia, and hx of CAD/[place] in 2009. - He presented to the ED to be admitted for possible right foot osteomyelitis. - Patient reports having a nonhealing ulcer on the lateral aspect of the right foot since late 07/2017. He was initially treated for cellulitis with Bactrim x 10 days (prescribed 07/30/17) at [facility]. He did have some improvement initially with the antibiotics but this progressively worsened in the last few weeks. He was sent for an outpt evaluation LE venous US (08/12/17) which was negative for DVT. He was then sent for LE arterial duplex US on 08/21/17 which noted mild nonobstructive atherosclerotic plaque throughout both LE. Pt reportedly had an outpt MRI which noted concern for osteomyelitis but I do not have the results of this study at the time of admission. Patient was seen by Dr. Ольга Taylor and recommended admission as there was concern for possible osteomyelitis and for surgical intervention by podiatry. - Podiatry is consulted, possible surgical intervention later today - per podiatry plan for partial 5th ray resection to remove distal 5th met head area and proximal aspect of 5th toe proximal phalanx. Plan to biopsy residual bone at both ends, excise wound, culture, and primarily close, unless abscess encountered. Plan for PICC for 2-6 weeks, pending bone biopsy/culture results. 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 Singh - intraoperative cultures pending - await pathology results to help determine DC abx regiment - continue IV Vancomycin, pharmacy dosing - Pain control PRN - Supportive care - DVT prophylaxis to be started post-operatively (2) Type 2 diabetes mellitus ICD Codes: E11.9 - Type 2 diabetes mellitus without complications Status: Chronic Plan: - Hgb A1C 11.3% on 08/12/17 - Cont. OHA - NovoLog SSI - Accu checks (3) Hypertension ICD Codes: I10 - Essential (primary) hypertension Status: Acute Plan: - Home meds continued - Monitor (4) Diabetic neuropathy ICD Codes: E11.40 - Type 2 diabetes mellitus with diabetic neuropathy, unspecified Status: Acute Plan: - Gabapentin home dose continued Assessment and Plan Patient examined. Assessment and plan formulated with Delma Dumont PA-C. I agree with the above. Problem Qualifiers (1) Diabetic foot ulcer: Qualified Codes: E11.621 - Type 2 diabetes mellitus with foot ulcer; L97.519 - Non-pressure chronic ulcer of other part of right foot with unspecified severity (2) Type 2 diabetes mellitus: Qualified Codes: E11.69 - Type 2 diabetes mellitus with other specified complication (3) Hypertension: Qualified Codes: I10 - Essential (primary) hypertension (4) Diabetic neuropathy: Qualified Codes: E11.49 - Type 2 diabetes mellitus with other diabetic neurological complication Delma Dumont Sep 11, 2017 13:55 Sidney Boyer DO Sep 15, 2017 21:40
[2017-09-11 16:00] VITALS: BP 127/82; PULSE 95; RESP 18; TEMP 98.9; O2SAT 97
[2017-09-11] MEDS: VANCOMYCIN INJ 1,750 MG in SODIUM CHLORID 0.9% 500 ML INJ 500 ML IV SCH (17:54)
[2017-09-11 20:43] VITALS: BP 160/78; PULSE 89; RESP 16; TEMP 98.7; O2SAT 93
[2017-09-11] MEDS: PRAVASTATIN SOD 40 MG TAB PO SCH (20:46)
--- NOTE | 2017-09-11 21:08 | PD.POD ---
Subjective Podiatric Problems s/p R partial 5th ray amputation, 09/10/17 Dr Singh Past Med/Surg/Social History Social History Smoking Status: Never Smoker Objective Vital Signs Vital Signs Date Time Temp Pulse Resp B/P (MAP) Pulse Ox O2 Delivery O2 Flow Rate FiO2 09/11/17 20:52 Room Air 09/11/17 18:00 16 09/11/17 16:00 98.9 95 18 127/82 (97) 97 09/11/17 11:30 98.1 92 16 126/73 (90) 94 09/11/17 08:45 Room Air 09/11/17 08:00 98.3 88 18 150/81 (104) 97 09/11/17 04:33 98.5 88 16 136/81 (99) 96 09/10/17 23:00 98.7 85 16 143/73 (96) 92 09/10/17 22:03 98.8 87 16 145/74 (97) 93 09/10/17 21:45 87 15 167/81 (109) 96 Room Air 09/10/17 21:30 90 13 169/87 (114) 94 Room Air 09/10/17 21:15 91 12 161/82 (108) 99 Room Air Coded Allergies: prednisone (Unverified Allergy, Severe, SWELLING, 09/09/17) Objective Remarks Last 72 hours Impressions Foot X-Ray 09/10/17 0000 Signed Impressions: Service Date/Time: Sunday, September 10, 2017 21:20 - CONCLUSION: Postsurgical changes involving the fifth toe as detailed above. Ryan Blanchard Jr., MD Chest X-Ray 09/09/17 1340 Signed Impressions: Service Date/Time: Saturday, September 09, 2017 14:42 - CONCLUSION: No acute cardiopulmonary abnormality is identified. Shahzad Schreiber MD Physical Exam Remarks Dressing R foot clean, dry, intact Assessment & Plan A/P R foot osteomyelitis R 5th metatarsal head and base of proximal phalanx, s/p partial 5th ray amputation 09/10/17 Dr Singh Keep bandage clean, dry, intact WB to heel only for transfer in surgical shoe R foot Will change bandage tomorrow and determine treatment plan based on culture results Henrietta Singh DPM Sep 11, 2017 21:08
[2017-09-11 23:25] VITALS: BP 146/81; PULSE 91; RESP 16; TEMP 98.9; O2SAT 93
[2017-09-12 04:44] VITALS: BP 154/76; PULSE 85; RESP 16; TEMP 98.2; O2SAT 96
[2017-09-12] MEDS: VANCOMYCIN INJ 1,750 MG in SODIUM CHLORID 0.9% 500 ML INJ 500 ML IV SCH ×2 (05:34→18:30)
[2017-09-12 08:41] VITALS: BP 160/96; PULSE 94; RESP 18; TEMP 98.3; O2SAT 94
[2017-09-12] MEDS: SODIUM CHLORIDE 0.9% FLUSH 10 ML FLUSH IV FLUSH SCH ×2 (08:45→20:23)
[2017-09-12] MEDS: GABAPENTIN 300 MG CAP PO SCH ×3 (08:45→18:30)
[2017-09-12] MEDS: LOSARTAN 50 MG TAB PO SCH (08:46)
[2017-09-12] MEDS: INSULIN ASPART SUPPLEMENTAL SCALE SQ SCH ×4 (08:46→20:23)
[2017-09-12] MEDS: metFORMIN HCL 500 MG TAB PO SCH ×2 (08:47→20:21)
[2017-09-12] MEDS: HYDROmorphone HCL PF 0.5 MG/0.5 ML SYRINGE IV PUSH PRN ×2 (08:47→16:50)
[2017-09-12 09:52] LABS: BICARBONATE 21.6 MEQ/L (21.0-32.0)
[2017-09-12] MEDS ORDERED: LOSARTAN 50 MG TAB PO ONE (10:45)
[2017-09-12] MEDS: SODIUM CHLORIDE FLUSH BID IV FLUSH SCH ×2 (10:57→20:23)
[2017-09-12 11:08] VITALS: BP 155/80; PULSE 94; RESP 17; TEMP 99; O2SAT 96
--- NOTE | 2017-09-12 14:22 | HHI.PR ---
Subjective Remarks Patient reports post-op pain is tolerable wants to get off narcotics as soon as possible also reports 2 loose BMs today Objective Vitals Vital Signs Date Time Temp Pulse Resp B/P (MAP) Pulse Ox O2 Delivery O2 Flow Rate FiO2 09/12/17 11:08 99.0 94 17 155/80 (105) 96 09/12/17 08:41 98.3 94 18 160/96 (117) 94 09/12/17 04:44 98.2 85 16 154/76 (102) 96 09/11/17 23:25 98.9 91 16 146/81 (102) 93 09/11/17 20:52 Room Air 09/11/17 20:43 98.7 89 16 160/78 (105) 93 09/11/17 18:00 16 09/11/17 16:00 98.9 95 18 127/82 (97) 97 Result Diagram: 09/11/17 0700 09/12/17 0645 Other Results Laboratory Tests Test 09/10/17 07:35 09/11/17 05:15 09/11/17 07:00 09/12/17 06:45 White Blood Count 8.4 TH/MM3 10.1 TH/MM3 Red Blood Count 4.20 MIL/MM3 4.01 MIL/MM3 Hemoglobin 12.4 GM/DL 11.9 GM/DL Hematocrit 36.3 % 34.6 % Mean Corpuscular Volume 86.4 FL 86.4 FL Mean Corpuscular Hemoglobin 29.6 PG 29.6 PG Mean Corpuscular Hemoglobin Concent 34.3 % 34.3 % Red Cell Distribution Width 13.5 % 13.8 % Platelet Count 292 TH/MM3 266 TH/MM3 Mean Platelet Volume 8.3 FL 8.3 FL Neutrophils (%) (Auto) 54.9 % 61.8 % Lymphocytes (%) (Auto) 34.7 % 27.2 % Monocytes (%) (Auto) 6.4 % 9.1 % Eosinophils (%) (Auto) 3.5 % 1.6 % Basophils (%) (Auto) 0.5 % 0.3 % Neutrophils # (Auto) 4.6 TH/MM3 6.2 TH/MM3 Lymphocytes # (Auto) 2.9 TH/MM3 2.8 TH/MM3 Monocytes # (Auto) 0.5 TH/MM3 0.9 TH/MM3 Eosinophils # (Auto) 0.3 TH/MM3 0.2 TH/MM3 Basophils # (Auto) 0.0 TH/MM3 0.0 TH/MM3 CBC Comment DIFF FINAL DIFF FINAL Differential Comment Blood Urea Nitrogen 17 MG/DL 17 MG/DL 15 MG/DL Creatinine 1.29 MG/DL 1.53 MG/DL 1.44 MG/DL Random Glucose 172 MG/DL 199 MG/DL 236 MG/DL Calcium Level 8.5 MG/DL 8.6 MG/DL 8.4 MG/DL Sodium Level 138 MEQ/L 139 MEQ/L 137 MEQ/L Potassium Level 4.0 MEQ/L 3.9 MEQ/L 4.0 MEQ/L Chloride Level 105 MEQ/L 105 MEQ/L 104 MEQ/L Carbon Dioxide Level 27.7 MEQ/L 25.0 MEQ/L 21.6 MEQ/L Anion Gap 5 MEQ/L 9 MEQ/L 11 MEQ/L Estimat Glomerular Filtration Rate 72 ML/MIN 59 ML/MIN 63 ML/MIN Vancomycin Level Trough 13.0 MCG/ML Imaging Last Impressions Chest X-Ray 09/09/17 1340 Signed Impressions: Service Date/Time: Saturday, September 09, 2017 14:42 - CONCLUSION: No acute cardiopulmonary abnormality is identified. Shahzad Schreiber MD Objective Remarks GENERAL: This is a well-nourished, well-developed patient, in no apparent distress. SKIN: post operative dressing dry and intact CARDIO: Regular RESP: CTA bilaterally. ABD: +BS, soft, non-tender, nondistended. NEURO: Awake and alert. Motor and sensory grossly within normal limits. Normal speech. Procedures Right partial 5th ray amputation with bone biopsies and wound excision 09/10/[address] Singh A/P Problem List: (1) Diabetic foot ulcer ICD Codes: E11.621 - Type 2 diabetes mellitus with foot ulcer; L97.509 - Non- pressure chronic ulcer of other part of unspecified foot with unspecified severity Status: Acute Plan: - Pt is a 47 y/o male with diabetes mellitus, diabetic neuropathy, HTN, hyperlipidemia, and hx of CAD/[place] in 2009. - He presented to the ED to be admitted for possible right foot osteomyelitis. - Patient reports having a nonhealing ulcer on the lateral aspect of the right foot since late 07/2017. He was initially treated for cellulitis with Bactrim x 10 days (prescribed 07/30/17) at [facility]. He did have some improvement initially with the antibiotics but this progressively worsened in the last few weeks. He was sent for an outpt evaluation LE venous US (08/12/17) which was negative for DVT. He was then sent for LE arterial duplex US on 08/21/17 which noted mild nonobstructive atherosclerotic plaque throughout both LE. Pt reportedly had an outpt MRI which noted concern for osteomyelitis but I do not have the results of this study at the time of admission. Patient was seen by Dr. Ольга Taylor and recommended admission as there was concern for possible osteomyelitis and for surgical intervention by podiatry. - Podiatry is consulted, possible surgical intervention later today - per podiatry plan for partial 5th ray resection to remove distal 5th met head area and proximal aspect of 5th toe proximal phalanx. Plan to biopsy residual bone at both ends, excise wound, culture, and primarily close, unless abscess encountered. Plan for PICC for 2-6 weeks, pending bone biopsy/culture results. 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 Singh - intraoperative cultures reviewed one culture reveals staph sp coagulase negative, other cultures still pending - await pathology results to help determine DC abx regiment - Dr. Singh to do first post-op dressing change, will await further recommendations - continue IV Vancomycin, pharmacy dosing - if patient has liquid stools will send for C diff - Pain control PRN - Supportive care - DVT prophylaxis to be started post-operatively (2) Type 2 diabetes mellitus ICD Codes: E11.9 - Type 2 diabetes mellitus without complications Status: Chronic Plan: - Hgb A1C 11.3% on 08/12/17 - Cont. OHA - NovoLog SSI - Accu checks - add Levemir 5 units SQ QHS (3) Hypertension ICD Codes: I10 - Essential (primary) hypertension Status: Acute Plan: - Home Losartan increased to 100mg PO daily - Monitor (4) Diabetic neuropathy ICD Codes: E11.40 - Type 2 diabetes mellitus with diabetic neuropathy, unspecified Status: Acute Plan: - Gabapentin home dose continued Assessment and Plan Patient examined. Assessment and plan formulated with Delma Dumont PA-C. I agree with the above. Problem Qualifiers (1) Diabetic foot ulcer: Qualified Codes: E11.621 - Type 2 diabetes mellitus with foot ulcer; L97.519 - Non-pressure chronic ulcer of other part of right foot with unspecified severity (2) Type 2 diabetes mellitus: Qualified Codes: E11.69 - Type 2 diabetes mellitus with other specified complication (3) Hypertension: Qualified Codes: I10 - Essential (primary) hypertension (4) Diabetic neuropathy: Qualified Codes: E11.49 - Type 2 diabetes mellitus with other diabetic neurological complication Delma Dumont Sep 12, 2017 14:22 Sidney Boyer DO Sep 15, 2017 21:41
[2017-09-12 16:00] VITALS: BP 158/83; PULSE 89; RESP 18; TEMP 98; O2SAT 97
[2017-09-12 19:47] VITALS: BP 173/96; PULSE 92; RESP 16; TEMP 99.3; O2SAT 96
--- NOTE | 2017-09-12 19:51 | PD.POD ---
Subjective Podiatric Problems s/p R partial 5th ray amputation, 09/10/17 Dr Singh Past Med/Surg/Social History Social History Smoking Status: Never Smoker Objective Vital Signs Vital Signs Date Time Temp Pulse Resp B/P (MAP) Pulse Ox O2 Delivery O2 Flow Rate FiO2 09/12/17 16:00 98.0 89 18 158/83 (108) 97 09/12/17 11:08 99.0 94 17 155/80 (105) 96 09/12/17 08:41 98.3 94 18 160/96 (117) 94 09/12/17 04:44 98.2 85 16 154/76 (102) 96 09/11/17 23:25 98.9 91 16 146/81 (102) 93 09/11/17 20:52 Room Air 09/11/17 20:43 98.7 89 16 160/78 (105) 93 Coded Allergies: prednisone (Unverified Allergy, Severe, SWELLING, 09/09/17) Objective Remarks Last 72 hours Impressions Foot X-Ray 09/10/17 0000 Signed Impressions: Service Date/Time: Sunday, September 10, 2017 21:20 - CONCLUSION: Postsurgical changes involving the fifth toe as detailed above. Ryan Blanchard Jr., MD Chest X-Ray 09/09/17 1340 Signed Impressions: Service Date/Time: Saturday, September 09, 2017 14:42 - CONCLUSION: No acute cardiopulmonary abnormality is identified. Shahzad Schreiber MD Physical Exam Remarks R lateral foot with nylon suture intact. No active drainage. No s/o infection present Assessment & Plan A/P R foot osteomyelitis R 5th metatarsal head and base of proximal phalanx, s/p partial 5th ray amputation 09/10/17 Dr Singh Changed bandage today, Keep bandage clean, dry, intact until follow up visit. WB to heel only for transfer in surgical shoe R foot Ok to d/c on PO levaquin Follow up in clinic Friday. Will adjust antibiotics as needed per bone biopsy results when in Henrietta Singh DPM Sep 12, 2017 19:51
[2017-09-12] MEDS: PRAVASTATIN SOD 40 MG TAB PO SCH (20:23)
[2017-09-12] MEDS ORDERED: INSULIN DETEMIR 100 UNITS/ML VIAL SQ SCH (21:00)
[2017-09-12 23:13] VITALS: BP 159/90; PULSE 88; RESP 16; TEMP 98.6; O2SAT 100
[2017-09-13] MEDS: HYDROmorphone HCL PF 0.5 MG/0.5 ML SYRINGE IV PUSH PRN (00:51)
[2017-09-13 04:10] VITALS: BP 177/77; PULSE 83; RESP 16; TEMP 98.3; O2SAT 97
[2017-09-13] MEDS ORDERED: PHARMACY ORDERED LAB ONE (05:45)
[2017-09-13] MEDS: VANCOMYCIN INJ 1,750 MG in SODIUM CHLORID 0.9% 500 ML INJ 500 ML IV SCH (05:47)
[2017-09-13] MEDS ORDERED: ACETAMINOPHEN/HYDROcodone 325 MG/5 MG TAB PO PRN (06:00)
[2017-09-13] MEDS ORDERED: cloNIDine HCL 0.2 MG TAB PO PRN (06:00)
[2017-09-13] MEDS ORDERED: HYDROmorphone HCL PF 1 MG/ML VIAL IV PRN (06:00)
[2017-09-13 08:00] VITALS: BP 171/85; PULSE 83; RESP 18; TEMP 98.2; O2SAT 96
[2017-09-13] MEDS: SODIUM CHLORIDE FLUSH BID IV FLUSH SCH (09:00)
[2017-09-13] MEDS ORDERED: LOSARTAN 50 MG TAB PO SCH (09:00)
[2017-09-13] MEDS: GABAPENTIN 300 MG CAP PO SCH ×2 (09:02→13:12)
[2017-09-13] MEDS: SODIUM CHLORIDE 0.9% FLUSH 10 ML FLUSH IV FLUSH SCH (09:02)
[2017-09-13] MEDS: metFORMIN HCL 500 MG TAB PO SCH (09:03)
[2017-09-13] MEDS: INSULIN ASPART SUPPLEMENTAL SCALE SQ SCH ×2 (10:16→13:14)
[2017-09-13] MEDS ORDERED: AMLO10TA2 PO (10:22)
--- NOTE | 2017-09-13 10:25 | HHI.DCPOC ---
Discharge Care Plan Diagnosis: (1) Diabetic foot ulcer (2) Type 2 diabetes mellitus (3) Hypertension (4) Diabetic neuropathy Goals to Promote Your Health * To prevent worsening of your condition and complications * To maintain your health at the optimal level Directions to Meet Your Goals Take your medications as prescribed Follow your dietary instruction Follow activity as directed Keep your appointments as scheduled Take your immunizations and boosters as scheduled If your symptoms worsen call your PCP, if no PCP go to Urgent Care Center or Emergency Room Smoking is Dangerous to Your Health. Avoid second hand smoke Call the 24-hour hour crisis hotline for domestic abuse at Delma Dumont Sep 13, 2017 10:25 Sidney Boyer DO Sep 15, 2017 21:42
[2017-09-13] MEDS ORDERED: WALKER/EXTENDED1 MIS (10:32)
--- NOTE | 2017-09-13 10:33 | HHI.DS ---
Discharge Summary Admission Date Sep 09, 2017 at 13:18 Discharge Date: Sep 13, 2017 Admitting Diagnosis RIGHT FOOT OSTEOMYELITIS (1) Diabetic foot ulcer ICD Codes: E11.621 - Type 2 diabetes mellitus with foot ulcer; L97.509 - Non- pressure chronic ulcer of other part of unspecified foot with unspecified severity Status: Acute (2) Type 2 diabetes mellitus ICD Codes: E11.9 - Type 2 diabetes mellitus without complications Status: Chronic (3) Hypertension ICD Codes: I10 - Essential (primary) hypertension Status: Acute (4) Diabetic neuropathy ICD Codes: E11.40 - Type 2 diabetes mellitus with diabetic neuropathy, unspecified Status: Acute Consultants Dr. Singh Procedures Right partial 5th ray amputation with bone biopsies and wound excision 09/10/[address] Singh Brief History Mr. Clancy is a pleasant 47 y/o AAM with diabetes mellitus, diabetic neuropathy, HTN, hyperlipidemia, and hx of CAD/DE in 2009. He presented to the ED to be admitted possible right foot osteomyelitis. Patient reports having a nonhealing ulcer on the lateral aspect of the right foot since late 07/2017. He was initially treated for a possible cellulitis with Bactrim x 10 days ( prescribed 07/30) at [facility]. He did have some improvement initially with the antibiotics. He was sent for an outpt evaluation LE venous US (08/12/17) which was negative for DVT. He was then sent for LE arterial duplex US on 08/21/17 which noted mild nonobstructive atherosclerotic plaque throughout both LE. Pt reportedly had an outpt MRI which per the pt noted concern for osteomyelitis. Patient was seen by Dr. Ольга Taylor and recommended admission as there was concern for possible osteomyelitis and for surgical intervention by podiatry. CBC/BMP: 09/11/17 0700 09/12/17 0645 Significant Findings Laboratory Tests Test 09/11/17 05:15 09/11/17 07:00 09/12/17 06:45 09/13/17 05:24 Vancomycin Level Trough 13.0 MCG/ML (5.0-10.0) 17.3 MCG/ML (5.0-10.0) Red Blood Count 4.01 MIL/MM3 (4.50-5.90) Hemoglobin 11.9 GM/DL (13.0-17.0) Hematocrit 34.6 % (39.0-51.0) Monocytes (%) (Auto) 9.1 % (0.0-8.0) Creatinine 1.53 MG/DL (0.60-1.30) 1.44 MG/DL (0.60-1.30) Random Glucose 199 MG/DL (74-106) 236 MG/DL (74-106) Estimat Glomerular Filtration Rate 59 ML/MIN (>89) 63 ML/MIN (>89) Calcium Level 8.4 MG/DL (8.5-10.1) Imaging Last Impressions Foot X-Ray 09/10/17 0000 Signed Impressions: Service Date/Time: Sunday, September 10, 2017 21:20 - CONCLUSION: Postsurgical changes involving the fifth toe as detailed above. Ryan Blacnhard Jr., MD Chest X-Ray 09/09/17 1340 Signed Impressions: Service Date/Time: Saturday, September 09, 2017 14:42 - CONCLUSION: No acute cardiopulmonary abnormality is identified. Shahzad Schreiber MD PE at Discharge GENERAL: This is a well-nourished, well-developed patient, in no apparent distress. SKIN: post operative dressing dry and intact CARDIO: Regular RESP: CTA bilaterally. ABD: +BS, soft, non-tender, nondistended. NEURO: Awake and alert. Motor and sensory grossly within normal limits. Normal speech. Hospital Course Diabetic foot ulcer - Pt is a 47 y/o male with diabetes mellitus, diabetic neuropathy, HTN, hyperlipidemia, and hx of CAD/DE in 2009. - He presented to the ED to be admitted for possible right foot osteomyelitis. - Patient reports having a nonhealing ulcer on the lateral aspect of the right foot since late 07/2017. He was initially treated for cellulitis with Bactrim x 10 days (prescribed 07/30/17) at [facility]. He did have some improvement initially with the antibiotics but this progressively worsened in the last few weeks. He was sent for an outpt evaluation LE venous US (08/12/17) which was negative for DVT. He was then sent for LE arterial duplex US on 08/21/17 which noted mild nonobstructive atherosclerotic plaque throughout both LE. Pt reportedly had an outpt MRI which noted concern for osteomyelitis but I do not have the results of this study at the time of admission. Patient was seen by Dr. Ольга Taylor and recommended admission as there was concern for possible osteomyelitis and for surgical intervention by podiatry. - Podiatry is consulted, possible surgical intervention later today - per podiatry plan for partial 5th ray resection to remove distal 5th met head area and proximal aspect of 5th toe proximal phalanx. Plan to biopsy residual bone at both ends, excise wound, culture, and primarily close, unless abscess encountered. Plan for PICC for 2-6 weeks, pending bone biopsy/culture results. 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 Singh - intraoperative cultures reviewed one culture reveals staph sp coagulase negative, other cultures still pending - await pathology results to help determine DC abx regiment - Dr. Singh to do first post-op dressing change, will await further recommendations - continue IV Vancomycin, pharmacy dosing- PO Levaquin at DC - if patient has liquid stools will send for C diff - Pain control PRN - Supportive care - Per podiatry: Keep bandage clean, dry, intact until follow up visit. Weight bearing to heel only for transfer in surgical shoe R foot Follow up in clinic Friday. Will adjust antibiotics as needed per bone biopsy results when in clinic Type 2 diabetes mellitus - Hgb A1C 11.3% on 08/12/17 - Cont. OHA - NovoLog SSI - Accu checks - add Levemir 5 units SQ QHS - DC on home regiment Hypertension - Home Losartan increased to 100mg PO daily - resume patient amlodipine 10 mg PO daily - Monitor - patient to follow up with PCP regarding glucose and BP Diabetic neuropathy - Gabapentin home dose continued Pt Condition on Discharge: Stable Discharge Disposition: Discharge Home Discharge Instructions DIET: Follow Instructions for: Diabetic Diet Activities you can perform: See Additionl Instruction Other Activity Instructions: Keep bandage clean, dry, intact until follow up visit. Weight bearing to heel only for transfer in surgical shoe R foot Follow up in clinic Friday. Will adjust antibiotics as needed per bone biopsy results when in clinic Follow up Referrals: PCP Follow-up - [address] Smith Podiatry - 3-5 Days with Henrietta Singh DPM New Medications: Levofloxacin (Levofloxacin) 500 Mg Tablet 500 MG PO DAILY for Infection, #7 TAB 0 Refills Walker/Extended Frame (Walker/Extended Frame) 1 Mis Mis EA .ROUTE DIRECTED, #1 Weight bearing to heel only for transfer in surgical shoe R foot Continued Medications: Amlodipine (Amlodipine) 10 Mg Tab 10 MG PO DAILY for Blood Pressure Management, #30 TAB 0 Refills Gabapentin (Gabapentin) 600 Mg Tab 600 MG PO TID, #90 TAB 0 Refills Insulin Aspart Inj (Novolog Flexpen Inj) 300 Unit/3 Ml Pen 30 UNITS SQ TIDAC for Blood Sugar Management, #1 PEN 0 Refills Insulin Degludec Inj (Tresiba Flextouch Pen Inj) 300 unit/3 ML Pen 30 UNITS SQ HS for Blood Sugar Management, #15 ML 0 Refills Liraglutide Inj (Victoza Inj) 18 Mg/3 Ml Pen 1.8 MG SQ DAILY, #1 PEN 0 Refills Losartan (Cozaar) 50 Mg Tab 50 MG PO DAILY for Blood Pressure Management, #30 TAB 0 Refills Lovastatin (Lovastatin) 40 Mg Tab 40 MG PO HS for Cholesterol Management, #30 TAB 0 Refills Metformin ER (Metformin ER) 1,000 Mg July 1000 MG PO BID for Blood Sugar Management, #30 TAB 0 Refills With evening meal Omeprazole (Omeprazole) 20 Mg Tab 20 MG PO DAILY, #30 TAB 0 Refills Discontinued Medications: Silver Sulfadiazine Topical (Silvadene Topical) 1 % Cream 1 APPLIC TOPICAL DIRECTED for Wound Management, #50 GM 0 Refills Additional Information DC with walker Patient examined. Assessment and plan formulated with Delma Dumont PA-C. I agree with the above. Delma Dumont Sep 13, 2017 10:33 Sidney Boyer DO Sep 15, 2017 21:42
[2017-09-13 12:00] VITALS: BP 167/91; PULSE 88; RESP 18; TEMP 98.1; O2SAT 97
[2017-09-13] MEDS ORDERED: LEVO500T8 PO (13:17)
[2017-09-13 16:00] VITALS: BP 145/84; PULSE 80; RESP 18; TEMP 97; O2SAT 97
[2017-09-15] MEDS ORDERED: WALKER/FOLDING1 MIS (12:15)
== END 2017-09-13 17:03 | disposition home or self-care (01) | DRG 617 ==
LOC: NEPE 12:43 → NEDA 13:18 → N04B 18:10
PROVIDERS: ADMIT Hospitalist; ATTEND Hospitalist
PROC: 0QBN0ZX Excision of Right Metatarsal, Open Approach, Diagnostic (ICD-10-PCS; 2017-09-10)
PROC: 0Y6M0ZF Detachment at Right Foot, Partial 5th Ray, Open Approach (ICD-10-PCS; principal; 2017-09-10 19:33)
DX: E11.69 Type 2 diabetes mellitus with other specified complication (principal); M86.171 Other acute osteomyelitis, right ankle and foot; E11.40 Type 2 diabetes mellitus with diabetic neuropathy, unspecified; K76.0 Fatty (change of) liver, not elsewhere classified; E11.621 Type 2 diabetes mellitus with foot ulcer; L97.519 Non-pressure chronic ulcer of other part of right foot with unspecified severity; I70.203 Unspecified atherosclerosis of native arteries of extremities, bilateral legs; I10 Essential (primary) hypertension; E78.5 Hyperlipidemia, unspecified; K21.9 Gastro-esophageal reflux disease without esophagitis; I25.2 Old myocardial infarction; I25.10 Atherosclerotic heart disease of native coronary artery without angina pectoris; E66.9 Obesity, unspecified; Z68.38 Body mass index [BMI] 38.0-38.9, adult; Z79.4 Long term (current) use of insulin; Z95.5 Presence of coronary angioplasty implant and graft
CPT/HCPCS: 71010; 73630; 76937; 80048; 80202; 82948; 83735; 85025; 86403; 87015; 87070; 87102; 87116; 87205; 87206; 88304; 88305; 88311; 93005; J1170; E0113; J0330; J1815; J2250; J2370; J2405; J3010; J3370; J7040; J7120